=== PATIENT | female | born 2000 | race Caucasian/White ===

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

== ENCOUNTER 2024-07-25 11:18 | Emergency (ER) | payer BC, OTHER ==
[2024-07-25 11:28] VITALS: RESP 18; TEMP 98.1
[2024-07-25] MEDS: FLUORESCEIN STRIPS 1 MG STRIP LEFT EYE ONE (11:37)
[2024-07-25] MEDS: PROPARACAINE 0.5% OPHTH DROPS 15 ML BTL LEFT EYE STA (11:37)
--- NOTE | 2024-07-25 11:46 | ED ---
Eye Problem HPI - General Chief complaint: Eye Problems Stated complaint: L Eye Issues Time Seen by Provider: 07/25/24 11:29 Source: patient, RN notes reviewed Mode of arrival: ambulatory Limitations: no limitations - History of Present Illness Initial comments: This is a 24-year-old female presenting for left eye injury occurring at 1015 today. Patient states she was attempting to raise her hand when the laminated card she was wearing around her neck flew into her left eye, causing immediate pain (6/10) with associated blurred vision that is ongoing. Patient denies headache, discharge, visual field deficit. MD chief complaint: eye pain, eye injury, vision change Onset/Timin -: hour(s) Onset Description: sudden Location: left eye Place: work If Injury: direct trauma Eye Symptoms: pain, decreased vision, blurry vision Severity scale (1-10): 6 Consistency: constant Associated Symptoms: none Treatments Prior to Arrival: none - Related Data Previous Rx's Medication Instructions Recorded Acetaminophen [Tylenol] 500 mg PO Q4-6H PRN #24 tab 06/06/21 Doxycycline [Vibramycin] 100 mg PO BID 1 Days #20 each 06/06/21 Ibuprofen [Motrin] 600 mg PO Q8HR PRN #30 tab 06/06/21 Erythromycin Ophth Oint [Romycin 1 applic LEFT EYE QID #15 gm 07/25/24 Ophth Oint] Ibuprofen [Motrin] 800 mg PO Q8H PRN #20 tab 07/25/24 Allergies Allergy/AdvReac Type Severity Reaction Status Date / Time cephalexin [From Keflex] Allergy Anaphylaxis Verified 07/25/24 11:28 Sulfa (Sulfonamide Allergy Anaphylaxis Verified 07/25/24 11:28 Antibiotics) Review of Systems ROS Statement: Those systems with pertinent positive or pertinent negative responses have been documented in the HPI. ROS Other: All systems not noted in ROS Statement are negative. Past Medical History Past Medical History: No Reported History Additional Past Medical History / Comment(s): miscarriage 8 weeks History of Any Multi-Drug Resistant Organisms: MRSA Date of last positivie culture/infection: 06/06/21 MDRO Source:: BUTTOCK Past Surgical History: Tonsillectomy Additional Past Surgical History / Comment(s): tubes in ears Past Psychological History: No Psychological Hx Reported Smoking Status: Current every day smoker Past Alcohol Use History: None Reported Past Drug Use History: None Reported General Exam Limitations: no limitations General appearance: alert, in no apparent distress Head exam: Present: atraumatic, normocephalic, normal inspection Eye exam: Present: normal appearance, PERRL, EOMI, other (Snellen chart: Left20/50, right20/30. Tonometer: 1920 bilaterally. Preciado lamp reveals small vertical, linear abrasion on cornea over pupil. Negative Rudy sign.). Absent: scleral icterus, conjunctival injection, periorbital swelling Pupils: Present: normal accommodation ENT exam: Present: normal exam, mucous membranes moist Neck exam: Present: normal inspection. Absent: tenderness, meningismus, lymphadenopathy Respiratory exam: Present: normal lung sounds bilaterally. Absent: respiratory distress, wheezes, rales, rhonchi, stridor Cardiovascular Exam: Present: regular rate, normal rhythm, normal heart sounds. Absent: systolic murmur, diastolic murmur, rubs, gallop, clicks GI/Abdominal exam: Present: soft, normal bowel sounds. Absent: distended, tenderness, guarding, rebound, rigid Extremities exam: Present: normal inspection, full ROM, normal capillary refill. Absent: tenderness, pedal edema, joint swelling, calf tenderness Back exam: Present: normal inspection Neurological exam: Present: alert, oriented X3, CN II-XII intact Psychiatric exam: Present: normal affect, normal mood Skin exam: Present: warm, dry, intact, normal color. Absent: rash Course Vital Signs 07/25/24 07/25/24 11:26 13:04 Temperature 98.1 F 98.1 F Pulse Rate 101 H 96 Respiratory 18 18 Rate Blood Pressure 136/85 132/76 O2 Sat by Pulse 96 99 Oximetry Medical Decision Making - Medical Decision Making Was pt. sent in by a medical professional or institution (, PA, MANAGER [employer], urgent care, hospital, or alf...) When possible be specific @ -No Did you speak to anyone other than the patient for history (EMS, parent, family, police, friend...)? What history was obtained from this source @ -No Did you review nursing and triage notes (agree or disagree)? Why? @ -I reviewed and agree with nursing and triage notes Were old charts reviewed (outside hosp., previous admission, EMS record, old EKG, old radiological studies, urgent care reports/EKG's, alf records)? Report findings @ -No old charts were reviewed Differential Diagnosis (chest pain, altered mental status, abdominal pain women, abdominal pain men, vaginal bleeding, weakness, fever, dyspnea, syncope, headache, dizziness, GI bleed, back pain, seizure, CVA, palpatations, mental health, musculoskeletal)? @ -Conjunctivitis, corneal abrasion, glaucoma, cataract, iritis, episcleritis, retinal detachment, this is not an exhaustive list EKG interpreted by me (3pts min.). @ -Not done X-rays interpreted by me (1pt min.). @ -None done CT interpreted by me (1pt min.). @ -None done U/S interpreted by me (1pt. min.). @ -None done What testing was considered but not performed or refused? (CT, X-rays, U/S, labs)? Why? @ -None What meds were considered but not given or refused? Why? @ -None Did you discuss the management of the patient with other professionals (professionals i.e. , PA, MANAGER [employer], lab, RT, psych nurse, social human services assistants, oil filters inspector, teacher, parachute officer, case monitor)? Give summary @ -No Was smoking cessation discussed for >3mins.? @ -No Was critical care preformed (if so, how long)? @ -No Were there social determinants of health that impacted care today? How? (Homelessness, low income, unemployed, alcoholism, drug addiction, transportation, low edu. Level, literacy, decrease access to med. care, care home, rehab)? @ -No Was there de-escalation of care discussed even if they declined (Discuss DNR or withdrawal of care, Hospice)? DNR status @ -No What co-morbidities impacted this encounter? (DM, HTN, Smoking, COPD, CAD, Cancer, CVA, ARF, Chemo, Hep., AIDS, mental health diagnosis, sleep apnea, morbid obesity)? @ -None Was patient admitted / discharged? Hospital course, mention meds given and route, prescriptions, significant lab abnormalities, going to OR and other pertinent info. @ -Preciado lamp examination reveals corneal abrasion over pupil with no other concerning physical exam findings. Erythromycin ointment and Motrin 800 sent to patient's pharmacy. Advised cold compress to affected eye for 10 minutes up to 4 times daily. May alternate Tylenol/Motrin every 4 hours for pain. Follow-up with PCP/ophthalmology for any ongoing or worsening symptoms. Discussed patient with Dr. Coppola. Undiagnosed new problem with uncertain prognosis? @ -No Drug Therapy requiring intensive monitoring for toxicity (Heparin, Nitro, Insulin, Cardizem)? @ -No Were any procedures done? @ -No Diagnosis/symptom? @ -Corneal abrasion Acute, or Chronic, or Acute on Chronic? @ -Acute Uncomplicated (without systemic symptoms) or Complicated (systemic symptoms)? @ -Uncomplicated Side effects of treatment? @ -No Exacerbation, Progression, or Severe Exacerbation? @ -No Poses a threat to life or bodily function? How? (Chest pain, [place], [place], pneumonia, PE, COPD, DKA, ARF, appy, cholecystitis, CVA, Diverticulitis, Homicidal, Suicidal, threat to staff... and all critical care pts) @ -No Disposition Clinical Impression: Corneal abrasion Disposition: HOME SELF-CARE Condition: Good Instructions (If sedation given, give patient instructions): Abrasion (ED) Additional Instructions: Alternate Tylenol/Motrin every 4 hours for pain. Cool compress to affected eye for 10 minutes up to 4 times daily. Follow-up with PCP/machine cementer and folder if symptoms do not improve or worsen. Prescriptions: Ibuprofen [Motrin] 800 mg PO Q8H PRN #20 tab PRN Reason: Pain Erythromycin Ophth Oint [Romycin Ophth Oint] 1 applic LEFT EYE QID #15 gm Is patient prescribed a controlled substance at d/c from ED?: No Referrals: Deirdre Strong MD [Primary Care Provider] - 1-2 days Tom Amezcua MD [STAFF PHYSICIAN] - 1-2 days Time of Disposition: 12:27
[2024-07-25 13:05] VITALS: BP 132/76; PULSE 96
== END 2024-07-25 13:04 | disposition home or self-care (01) ==
LOC: EC 11:18
DX: S05.00XA Injury of conjunctiva and corneal abrasion without foreign body, unspecified eye, initial encounter (principal); F17.200 Nicotine dependence, unspecified, uncomplicated; Z88.1 Allergy status to other antibiotic agents; Z88.2 Allergy status to sulfonamides; W22.8XXA Striking against or struck by other objects, initial encounter
CPT/HCPCS: 99283

== ENCOUNTER 2024-09-07 12:13 | Emergency (ER) | payer BC, OTHER ==
[2024-09-07 12:27] VITALS: RESP 20
--- NOTE | 2024-09-07 13:03 | ED ---
General Adult HPI - General Chief complaint: Abdominal Pain Stated complaint: Abd Pain Time Seen by Provider: 09/07/24 12:30 Source: patient, RN notes reviewed Mode of arrival: ambulatory Limitations: no limitations - History of Present Illness Initial comments: This is a 24-year-old female with no reported medical conditions presenting to emergency room with complaints of lower pelvic pain with some over the left lower pelvic that started this morning. Patient states that she has not had a menstrual cycle in 4 months and recently had outpatient ultrasound testing which revealed that she had a blockage of her left fallopian tube. Patient denies v aginal discharge, abnormal vaginal bleeding, dysuria, creased urinary frequency or urgency, flank pain, fevers, chills, nausea, vomiting. She denies history of STI or STD or denies chance of STIs or STDs. Denies chance of . Denies previous medical abdominal history. - Related Data Previous Rx's Medication Instructions Recorded Acetaminophen [Tylenol] 500 mg PO Q4-6H PRN #24 tab 06/06/21 Doxycycline [Vibramycin] 100 mg PO BID 1 Days #20 each 06/06/21 Ibuprofen [Motrin] 600 mg PO Q8HR PRN #30 tab 06/06/21 Erythromycin Ophth Oint [Romycin 1 applic LEFT EYE QID #15 gm 07/25/24 Ophth Oint] Ibuprofen [Motrin] 800 mg PO Q8H PRN #20 tab 07/25/24 Ibuprofen [Motrin] 800 mg PO Q6HR #30 tab 09/07/24 clindamycin HCL 300 mg PO QID #40 cap 09/07/24 Allergies Allergy/AdvReac Type Severity Reaction Status Date / Time cephalexin [From Keflex] Allergy Anaphylaxis Verified 09/07/24 12:27 Sulfa (Sulfonamide Allergy Anaphylaxis Verified 09/07/24 12:27 Antibiotics) Review of Systems ROS Statement: Those systems with pertinent positive or pertinent negative responses have been documented in the HPI. ROS Other: All systems not noted in ROS Statement are negative. Past Medical History Past Medical History: No Reported History Additional Past Medical History / Comment(s): miscarriage 8 weeks History of Any Multi-Drug Resistant Organisms: MRSA Date of last positivie culture/infection: 06/06/21 MDRO Source:: BUTTOCK Past Surgical History: Tonsillectomy Additional Past Surgical History / Comment(s): tubes in ears Past Psychological History: No Psychological Hx Reported Smoking Status: Current every day smoker Past Alcohol Use History: None Reported Past Drug Use History: None Reported General Exam - General Exam Comments Initial Comments: Visual Physical Exam Vital signs reviewed General: Well-appearing, nontoxic, no acute distress. Head: Normocephalic, atraumatic Eyes: PERRLA, EOMI ENT: Airway patent Chest: Nonlabored breathing Skin: No visual rash, normal skin tone Neuro: Alert and oriented 3 Musculoskeletal: No gross abnormalities Limitations: no limitations General appearance: alert, in no apparent distress ENT exam: Present: normal exam, mucous membranes moist Neck exam: Present: normal inspection. Absent: tenderness, meningismus, l ymphadenopathy Respiratory exam: Present: normal lung sounds bilaterally. Absent: respiratory distress, wheezes, rales, rhonchi, stridor Cardiovascular Exam: Present: regular rate, normal rhythm, normal heart sounds. Absent: systolic murmur, diastolic murmur, rubs, gallop, clicks GI/Abdominal exam: Present: soft, tenderness (left pelvic), normal bowel sounds. Absent: distended, guarding, rebound, rigid Extremities exam: Present: normal inspection, full ROM, normal capillary refill. Absent: tenderness, pedal edema, joint swelling, calf tenderness Back exam: Present: normal inspection. Absent: CVA tenderness (R), CVA tenderness (L) Course Vital Signs 09/07/24 09/07/24 12:23 15:47 Temperature 97.8 F 98.4 F Pulse Rate 88 92 Respiratory 20 20 Rate Blood Pressure 142/93 129/80 O2 Sat by Pulse 96 95 Oximetry Medical Decision Making - Medical Decision Making Was pt. sent in by a medical professional or institution (, PA, MANAGER LEAN, urgent care, hospital, or long-term...) When possible be specific @ -No Did you speak to anyone other than the patient for history (EMS, parent, family, police, friend...)? What history was obtained from this source @ -No Did you review nursing and triage notes (agree or disagree)? Why? @ -I reviewed and agree with nursing and triage notes Were old charts reviewed (outside hosp., previous admission, EMS record, old EKG, old radiological studies, urgent care reports/EKG's, long-term records)? Report findings @ -Reviewed ultrasound imaging completed on 09/03/2024 which revealed left-sided hydrosalpinx. Differential Diagnosis (chest pain, altered mental status, abdominal pain women, abdominal pain men, vaginal bleeding, weakness, fever, dyspnea, syncope, headache, dizziness, GI bleed, back pain, seizure, CVA, palpatations, mental health, musculoskeletal)? @ -Differential Abdominal Pain Women: Appendicitis, Cholecystitis, diverticulosis, ischemic bowel, pancreatitis, hepatitis, UTI, gastroenteritis, AAA, incarcerated hernia, bowel obstruction, constipation, inflammatory bowel, hepatitis, peptic ulcer disease, splenic infarction, perforated viscus, vulvitis, ovarian torsion, PID, kidney stone, placenta abruption, this is not meant to be an all-inclusive list EKG interpreted by me (3pts min.). @ -None X-rays interpreted by me (1pt min.). @ -None done CT interpreted by me (1pt min.). @ -CT imaging of the abdomen pelvis with IV contrast reveals hydrosalpinx on the left with moderate liver steatosis U/S interpreted by me (1pt. min.). @ -None done What testing was considered but not performed or refused? (CT, X-rays, U/S, labs)? Why? @ -None What meds were considered but not given or refused? Why? @ -None Did you discuss the management of the patient with other professionals (professionals i.e. , PA, MANAGER LEAN, lab, RT, psych nurse, social media analyst, cdl b driver, teacher, border patrol officer, case therapist)? Give summary @ -Spoke with on-call OB physician, Dr. Hancock, in regard to the ultrasound and CT findings who recommended patient trial a 10-day course of doxycycline follow- up with primary care provider in 7 to 14 days. Additionally, recommend ibuprofen for pain control. Was smoking cessation discussed for >3mins.? @ -No Was critical care preformed (if so, how long)? @ -No Were there social determinants of health that impacted care today? How? (Homelessness, low income, unemployed, alcoholism, drug addiction, transportation, low edu. Level, literacy, decrease access to med. care, prison, rehab)? @ -No Was there de-escalation of care discussed even if they declined (Discuss DNR or withdrawal of care, Hospice)? DNR status @ -No What co-morbidities impacted this encounter? (DM, HTN, Smoking, COPD, CAD, Cancer, CVA, ARF, Chemo, Hep., AIDS, mental health diagnosis, sleep apnea, morbid obesity)? @ -None Was patient admitted / discharged? Hospital course, mention meds given and route, prescriptions, significant lab abnormalities, going to OR and other pertinent info. @ -Discharge. 24-year-old female presenting with pelvic pain. Pain is reproducible on examination. She provided Toradol for pain relief. Laboratory testing is unremarkable including CBC and CMP. Urinalysis reveals no signs of infection, hCG is negative. CT of the abdomen pelvis reveals left hydrosalpinx. I spoke with OB, Dr. Hancock, who recommends treating the patient with oral doxycycline for 7 to 10-day course and to take Motrin as needed for pain and to follow-up with primary care provider in 7 to 14 days for further evaluation. Patient stable for discharge with course of antibiotics into the pharmacy. Return parameters discussed. Case discussed with Dr. Grewal Undiagnosed new problem with uncertain prognosis? @ -No Drug Therapy requiring intensive monitoring for toxicity (Heparin, Nitro, Insulin, Cardizem)? @ -No Were any procedures done? @ -No Diagnosis/symptom? @ -Pelvic pain, hydrosalpinx Acute, or Chronic, or Acute on Chronic? @ -Acute Uncomplicated (without systemic symptoms) or Complicated (systemic symptoms)? @ -Uncomplicated Side effects of treatment? @ -No Exacerbation, Progression, or Severe Exacerbation? @ -No Poses a threat to life or bodily function? How? (Chest pain, [place], [place], pneumonia, PE, COPD, DKA, ARF, appy, cholecystitis, CVA, Diverticulitis, Homicidal, Suicidal, threat to staff... and all critical care pts) @ -No - Lab Data Result diagrams: 09/07/24 13:30 09/07/24 13:30 Lab Results 09/07/24 09/07/24 09/07/24 Range/Units 13:30 13:30 13:30 WBC 9.21 (4.50-10.00) 10*3/uL RBC 5.16 (4.10-5.20) 10*6/uL Hgb 13.8 (12.0-15.0) g/dL Hct 41.8 (37.2-46.3) % MCV 81.0 (80.0-97.0) fL MCH 26.7 L (27.0-32.0) pg MCHC 33.0 (32.0-37.0) g/dL Plt Count 292 (140-440) 10*3/uL MPV 10.4 (9.5-12.2) fL Immature Gran % (Auto) 0.2 % Neutrophils % 56.0 % Lymphocytes % 30.9 % Monocytes % 7.6 % Eosinophils % 4.5 % Basophils % 0.8 % Immature Gran # 0.02 (0.00-0.04) 10*3/uL Neutrophils # 5.16 (1.80-7.70) 10*3/uL Lymphocytes # 2.85 (0.90-5.00) 10*3/uL Monocytes # 0.70 (0.20-1.00) 10*3/uL Eosinophils # 0.41 H (0.04-0.35) 10*3/uL Basophils # 0.07 (0.00-0.10) 10*3/uL Sodium (137-145) mmol/L Potassium (3.5-5.1) mmol/L Chloride (98-107) mmol/L Carbon Dioxide (22-30) mmol/L Anion Gap mmol/L BUN (7-17) mg/dL Creatinine (0.52-1.04) mg/dL Est GFR (CKD-EPI)AfAm (>60 ml/min/1.73 sqM) Est GFR (CKD-EPI)NonAf (>60 ml/min/1.73 sqM) Glucose (74-99) mg/dL Calcium (8.4-10.2) mg/dL Total Bilirubin (0.2-1.3) mg/dL AST (14-36) U/L ALT (4-34) U/L Alkaline Phosphatase (38-126) U/L Total Protein (6.3-8.2) g/dL Albumin (3.5-5.0) g/dL Lipase (23-300) U/L Urine Color Light Yellow Urine Appearance Cloudy H (Clear) Urine pH 5.5 (5.0-8.0) Ur Specific [place] 1.017 (1.001-1.035) Urine Protein Negative (Negative) Urine Glucose (UA) Negative (Negative) Urine Ketones Negative (Negative) Urine Blood Negative (Negative) Urine Nitrite Negative (Negative) Urine Bilirubin Negative (Negative) Urine Urobilinogen <2.0 (<2.0) mg/dL Ur Leukocyte Esterase Small H (Negative) Urine RBC 2 (0-5) /hpf Urine WBC 2 (0-5) /hpf Ur Squamous Epith Cells 10 H (0-4) /hpf Urine Bacteria Rare H (None) /hpf Urine Mucus Rare H (None) /hpf Urine HCG, Qual Not Detected (Not Detectd) 09/07/24 Range/Units 13:30 WBC (4.50-10.00) 10*3/uL RBC (4.10-5.20) 10*6/uL Hgb (12.0-15.0) g/dL Hct (37.2-46.3) % MCV (80.0-97.0) fL MCH (27.0-32.0) pg MCHC (32.0-37.0) g/dL Plt Count (140-440) 10*3/uL MPV (9.5-12.2) fL Immature Gran % (Auto) % Neutrophils % % Lymphocytes % % Monocytes % % Eosinophils % % Basophils % % Immature Gran # (0.00-0.04) 10*3/uL Neutrophils # (1.80-7.70) 10*3/uL Lymphocytes # (0.90-5.00) 10*3/uL Monocytes # (0.20-1.00) 10*3/uL Eosinophils # (0.04-0.35) 10*3/uL Basophils # (0.00-0.10) 10*3/uL Sodium 137 (137-145) mmol/L Potassium 5.0 (3.5-5.1) mmol/L Chloride 107 (98-107) mmol/L Carbon Dioxide 21 L (22-30) mmol/L Anion Gap 9 mmol/L BUN 10 (7-17) mg/dL Creatinine 0.55 (0.52-1.04) mg/dL Est GFR (CKD-EPI)AfAm >90 (>60 ml/min/1.73 sqM) Est GFR (CKD-EPI)NonAf >90 (>60 ml/min/1.73 sqM) Glucose 90 (74-99) mg/dL Calcium 9.5 (8.4-10.2) mg/dL Total Bilirubin 0.9 (0.2-1.3) mg/dL AST 66 H (14-36) U/L ALT 90 H (4-34) U/L Alkaline Phosphatase 83 (38-126) U/L Total Protein 7.6 (6.3-8.2) g/dL Albumin 4.6 (3.5-5.0) g/dL Lipase 71 (23-300) U/L Urine Color Urine Appearance (Clear) Urine pH (5.0-8.0) Ur Specific [place] (1.001-1.035) Urine Protein (Negative) Urine Glucose (UA) (Negative) Urine Ketones (Negative) Urine Blood (Negative) Urine Nitrite (Negative) Urine Bilirubin (Negative) Urine Urobilinogen (<2.0) mg/dL Ur Leukocyte Esterase (Negative) Urine RBC (0-5) /hpf Urine WBC (0-5) /hpf Ur Squamous Epith Cells (0-4) /hpf Urine Bacteria (None) /hpf Urine Mucus (None) /hpf Urine HCG, Qual (Not Detectd) Disposition Clinical Impression: Hydrosalpinx, Pelvic pain Disposition: HOME SELF-CARE Condition: Stable Instructions (If sedation given, give patient instructions): Pelvic Pain in Women (ED) Additional Instructions: Please return to the Emergency Department if symptoms worsen or any other concerns. Complete full course of antibiotics as prescribed. Continue to take Tylenol and/or Motrin as prescribed as needed for pain relief. Follow-up with your primary care provider in 7 to 14 days for reevaluation. Prescriptions: clindamycin HCL 300 mg PO QID #40 cap Ibuprofen [Motrin] 800 mg PO Q6HR #30 tab Is patient prescribed a controlled substance at d/c from ED?: No Referrals: Deirdre Strong MD [Primary Care Provider] - 1-2 days Time of Disposition: 15:34
[2024-09-07 13:40] LABS: Basophils # (A) 0.07 10*3/uL (0.00-0.10); Basophils % (A) 0.8 %; Eosinophils # (A) 0.41 10*3/uL (0.04-0.35); Eosinophils % (A) 4.5 %; HCT 41.8 % (37.2-46.3); HGB 13.8 g/dL (12.0-15.0); Lymphocytes # (A) 2.85 10*3/uL (0.90-5.00); Lymphocytes % (A) 30.9 %; MCH 26.7 pg (27.0-32.0); Mean Platelet Volume 10.4 fL (9.5-12.2); Monocytes % (A) 7.6 %; Neutrophils # (A) 5.16 10*3/uL (1.80-7.70); Platelet Count 292 10*3/uL (140-440); RBC 5.16 10*6/uL (4.10-5.20); RDW 12.9 % (11.5-14.5); WBC 9.21 10*3/uL (4.50-10.00)
[2024-09-07 13:46] LABS: Appearance,Urine Cloudy (Clear); Bacteria,Urine Rare /hpf; Bilirubin,Urine Negative (Negative); Blood,Urine Negative (Negative); Color,Urine Light Yellow; Glucose,Urine (UA) Negative (Negative); Ketones,Urine Negative (Negative); Leukocyte Esterase,Urine Small (Negative); Mucus,Urine Rare /hpf; Nitrite,Urine Negative (Negative); PH, Urine 5.5 (5.0-8.0); Protein,Urine Negative (Negative); RBC,Urine 2 /hpf (0-5); Specific Gravity,Urine 1.017 (1.001-1.035); Squamous Epithelial Cell,Urine 10 /hpf (0-4); Urobilinogen,Urine <2.0 mg/dL (<2.0); WBC,Urine 2 /hpf (0-5)
[2024-09-07 13:54] LABS: ALT 90 U/L (4-34); African American GFR (CKD) >90 (>60 ml/min/1.73 sqM); Anion Gap 9 mmol/L; Blood Urea Nitrogen 10 mg/dL (7-17); Calcium 9.5 mg/dL (8.4-10.2); Carbon Dioxide 21 mmol/L (22-30); Chloride 107 mmol/L (98-107); Glucose 90 mg/dL (74-99); Non-African American GFR(CKD) >90 (>60 ml/min/1.73 sqM); Sodium 137 mmol/L (137-145)
[2024-09-07 14:07] LABS: Total Protein 7.6 g/dL (6.3-8.2)
[2024-09-07 14:08] LABS: Albumin 4.6 g/dL (3.5-5.0)
[2024-09-07 14:09] LABS: AST 66 U/L (14-36); Alkaline Phosphatase 83 U/L (38-126); Total Bilirubin 0.9 mg/dL (0.2-1.3)
--- NOTE | 2024-09-07 14:32 | CT ---
EXAMINATION TYPE: CT abdomen pelvis w con DATE OF EXAM: 09/07/2024 COMPARISON: None CLINICAL INDICATION: Female, 24 years old with history of pelvic pain, recent US concern for hydrosal pinx; PHH, Pelvic pain, recent US concern for hydrosalpinx. TECHNIQUE: Performed without Oral Contrast and with IV Contrast, patient injected with 100 ml mL of Isovue 300. CT DLP: 3033.[address] CTDI: mGy Automated exposure control for dose reduction was used. Findings: The lung bases are clear. The gallbladder is normal without distention, wall thickening, pericholecystic fluid or gallstones. T here is no biliary ductal dilatation. There is no focal mass or organomegaly involving the liver, pancreas, spleen or adrenal glands. There is moderate liver steatosis There is no solid renal mass or hydronephrosis and there is homogeneous contrast enhancement of the r enal parenchyma. The caliber the abdominal aorta is normal is no retroperitoneal adenopathy or hemorr esthela. The bowel loops are normal in caliber and there is no evidence of dilatation or obstruction. No infla mmatory changes are identified in the bowel wall or mesentery. There is no free intraperitoneal air or fluid. There is a fluid filled tubular structure in the left adnexa consistent with hydrosalpinx. There is n o free fluid in the cul-de-sac. There are no inflammatory changes in the pelvis and there is no pelvi c abscess. The osseous structures are intact. IMPRESSION: 1. Findings consistent with hydrosalpinx on the left. 2. Moderate liver steatosis [facility], , 09/07/2024 2:30 PM
[2024-09-07 15:26] LABS: Lipase 71 U/L (23-300)
[2024-09-07 15:50] VITALS: BP 129/80; PULSE 92; TEMP 98.4
[2024-09-07] MEDS: KETOROLAC 15 MG/ML 1 ML VIAL IVP STA (15:50)
== END 2024-09-07 16:01 | disposition home or self-care (01) ==
LOC: EC 12:13
DX: R10.2 Pelvic and perineal pain (principal); N70.11 Chronic salpingitis; F17.200 Nicotine dependence, unspecified, uncomplicated; Z88.1 Allergy status to other antibiotic agents; Z88.2 Allergy status to sulfonamides
CPT/HCPCS: 36415; 80053; 83690; 85025; 81001; 81025; 74177; 99285; 96374; J1885; Q9967

== ENCOUNTER 2024-10-01 08:35 | Emergency (ER) | payer BC, OTHER ==
[2024-10-01 08:43] VITALS: TEMP 97.9
--- NOTE | 2024-10-01 09:47 | ED ---
General Adult HPI - General Chief complaint: Urogenital Stated complaint: Pelvic Pain Time Seen by Provider: 10/01/24 09:10 Source: patient, RN notes reviewed Mode of arrival: ambulatory Limitations: no limitations - History of Present Illness Initial comments: 24-year-old female presenting to the emergency department for complaints of left lower pelvic pain that is severe this morning. She states that over the weekend she had dull pain of the left-hand side however this morning it intensified. She states that the pain is nonradiating. She is also been experiencing dysuria over the past few days. She denies hematuria, increased urinary frequency or urgency, malodorous urine, vaginal discharge or odor. She denies chance of or STI/STDs. She states that she is following up with OB on this upcoming Tuesday for further evaluation of intermittent pelvic pain she has been experiencing over the past few months. States that she does have a history of a "swollen" left fallopian tube. - Related Data Previous Rx's Medication Instructions Recorded Acetaminophen [Tylenol] 500 mg PO Q4-6H PRN #24 tab 06/06/21 Doxycycline [Vibramycin] 100 mg PO BID 1 Days #20 each 06/06/21 Ibuprofen [Motrin] 600 mg PO Q8HR PRN #30 tab 06/06/21 Erythromycin Ophth Oint [Romycin 1 applic LEFT EYE QID #15 gm 07/25/24 Ophth Oint] Ibuprofen [Motrin] 800 mg PO Q8H PRN #20 tab 07/25/24 Ibuprofen [Motrin] 800 mg PO Q6HR #30 tab 09/07/24 clindamycin HCL 300 mg PO QID #40 cap 09/07/24 Ketorolac [Toradol] 10 mg PO Q8HR #15 tab 10/01/24 Allergies Allergy/AdvReac Type Severity Reaction Status Date / Time cephalexin [From Keflex] Allergy Anaphylaxis Verified 10/01/24 08:42 Sulfa (Sulfonamide Allergy Anaphylaxis Verified 10/01/24 08:42 Antibiotics) Review of Systems ROS Statement: Those systems with pertinent positive or pertinent negative responses have been documented in the HPI. ROS Other: All systems not noted in ROS Statement are negative. Past Medical History Past Medical History: No Reported History, Chest Pain / Angina, Diabetes Mellitus Additional Past Medical History / Comment(s): miscarriage 8 weeks, Fatty liver History of Any Multi-Drug Resistant Organisms: MRSA Date of last positivie culture/infection: 06/06/21 MDRO Source:: BUTTOCK Past Surgical History: Tonsillectomy Additional Past Surgical History / Comment(s): tubes in ears Past Psychological History: No Psychological Hx Reported Smoking Status: Current every day smoker Past Alcohol Use History: None Reported Past Drug Use History: None Reported General Exam Limitations: no limitations Neck exam: Present: normal inspection. Absent: tenderness, meningismus, lymphadenopathy Respiratory exam: Present: normal lung sounds bilaterally. Absent: respiratory distress, wheezes, rales, rhonchi, stridor Cardiovascular Exam: Present: regular rate, normal rhythm, normal heart sounds. Absent: systolic murmur, diastolic murmur, rubs, gallop, clicks GI/Abdominal exam: Present: soft, tenderness (left pelvic), normal bowel sounds. Absent: distended, guarding, rebound, rigid Extremities exam: Present: normal inspection, full ROM, normal capillary refill. Absent: tenderness, pedal edema, joint swelling, calf tenderness Back exam: Present: normal inspection. Absent: CVA tenderness (R), CVA tenderness (L) Course Vital Signs 10/01/24 10/01/24 08:40 11:42 Temperature 97.9 F Pulse Rate 96 95 Respiratory 20 18 Rate Blood Pressure 143/89 107/78 O2 Sat by Pulse 99 97 Oximetry Medical Decision Making - Medical Decision Making Was pt. sent in by a medical professional or institution (NAOMIE Bojorquez, YARD COORDINATOR, urgent care, hospital, or retirement...) When possible be specific @ -No Did you speak to anyone other than the patient for history (EMS, parent, family, police, friend...)? What history was obtained from this source @ -No Did you review nursing and triage notes (agree or disagree)? Why? @ -I reviewed and agree with nursing and triage notes Were old charts reviewed (outside hosp., previous admission, EMS record, old EKG, old radiological studies, urgent care reports/EKG's, retirement records)? Report findings @ -No old charts were reviewed Differential Diagnosis (chest pain, altered mental status, abdominal pain women, abdominal pain men, vaginal bleeding, weakness, fever, dyspnea, syncope, headache, dizziness, GI bleed, back pain, seizure, CVA, palpatations, mental health, musculoskeletal)? @ -Differential Abdominal Pain Women: Appendicitis, Cholecystitis, diverticulosis, ischemic bowel, pancreatitis, hepatitis, UTI, gastroenteritis, AAA, incarcerated hernia, bowel obstruction, constipation, inflammatory bowel, hepatitis, peptic ulcer disease, splenic infarction, perforated viscus, vulvitis, ovarian torsion, PID, kidney stone, placenta abruption, this is not meant to be an all-inclusive list EKG interpreted by me (3pts min.). @ -None X-rays interpreted by me (1pt min.). @ -None done CT interpreted by me (1pt min.). @ -None done U/S interpreted by me (1pt. min.). @ -Transvaginal ultrasound reveals dilated tubular structure left adnexa possibly hydrosalpinx, endometrium within normal limits with bilateral venous and arterial flow to both ovaries, multiple peripheral follicles in the ovaries compatible with polycystic ovarian morphology What testing was considered but not performed or refused? (CT, X-rays, U/S, labs)? Why? @ -None What meds were considered but not given or refused? Why? @ -None Did you discuss the management of the patient with other professionals (professionals i.e. , PA, YARD COORDINATOR, lab, RT, psych nurse, social scientist, corporate accounting manager, teacher, supply officer, case worker)? Give summary @ -No Was smoking cessation discussed for >3mins.? @ -No Was critical care preformed (if so, how long)? @ -No Were there social determinants of health that impacted care today? How? (Homelessness, low income, unemployed, alcoholism, drug addiction, transportation, low edu. Level, literacy, decrease access to med. care, prison, rehab)? @ -No Was there de-escalation of care discussed even if they declined (Discuss DNR or withdrawal of care, Hospice)? DNR status @ -No What co-morbidities impacted this encounter? (DM, HTN, Smoking, COPD, CAD, Cancer, CVA, ARF, Chemo, Hep., AIDS, mental health diagnosis, sleep apnea, morbid obesity)? @ -None Was patient admitted / discharged? Hospital course, mention meds given and route, prescriptions, significant lab abnormalities, going to OR and other pertinent info. @ Discharge. 24-year-old female presenting to the emergency department for complaints of left lower pelvic pain. Patient's pain is mildly reproducible on examination. She is provided with Toradol for pain relief. Urinalysis reveals blood and hCG is not detected. Transvaginal ultrasound reveals a dilated tubular structure of the left adnexa with multiple peripheral follicles in the ovaries with no evidence of ovarian torsion bilaterally. Patient is provided with outpatient prescription for Toradol to take as needed for pain instructed to follow-up with OB as scheduled on Tuesday for further evaluation. Case discussed with my attending Dr. Grewal. Additionally, urine sent for testing for chlamydia, gonorrhea, trichomonas. Patient was offered prophylactic treatment for STIs however she is declined. Undiagnosed new problem with uncertain prognosis? @ -No Drug Therapy requiring intensive monitoring for toxicity (Heparin, Nitro, Insulin, Cardizem)? @ -No Were any procedures done? @ -No Diagnosis/symptom? @ -Pelvic pain Acute, or Chronic, or Acute on Chronic? @ -Acute Uncomplicated (without systemic symptoms) or Complicated (systemic symptoms)? @ -Uncomplicated Side effects of treatment? @ -No Exacerbation, Progression, or Severe Exacerbation? @ -No Poses a threat to life or bodily function? How? (Chest pain, [place], [place], pneumonia, PE, COPD, DKA, ARF, appy, cholecystitis, CVA, Diverticulitis, Homicidal, Suicidal, threat to staff... and all critical care pts) @ -No - Lab Data Lab Results 10/01/24 10/01/24 Range/Units 09:48 09:48 Urine Color Colorless Urine Appearance Clear (Clear) Urine pH 6.5 (5.0-8.0) Ur Specific [place] 1.018 (1.001-1.035) Urine Protein Negative (Negative) Urine Glucose (UA) Negative (Negative) Urine Ketones Negative (Negative) Urine Blood Moderate H (Negative) Urine Nitrite Negative (Negative) Urine Bilirubin Negative (Negative) Urine Urobilinogen <2.0 (<2.0) mg/dL Ur Leukocyte Esterase Small H (Negative) Urine RBC 63 H (0-5) /hpf Urine WBC 5 (0-5) /hpf Ur Squamous Epith Cells 6 H (0-4) /hpf Urine Mucus Rare H (None) /hpf Urine HCG, Qual Not Detected (Not Detectd) Disposition Clinical Impression: Pelvic pain Disposition: HOME SELF-CARE Condition: Good Instructions (If sedation given, give patient instructions): Pelvic Pain in Women (ED) Additional Instructions: Please return to the Emergency Department if symptoms worsen or any other conc erns. Please follow-up as scheduled on Tuesday with your senior ui ux designer for further evaluation. Only take Toradol as needed for pain relief and do not take this medication along with ibuprofen/Motrin/Advil. You may take Toradol with Tylenol. Prescriptions: Ketorolac [Toradol] 10 mg PO Q8HR #15 tab Is patient prescribed a controlled substance at d/c from ED?: No Referrals: Deirdre Strong MD [Primary Care Provider] - 1-2 days Time of Disposition: 11:02
[2024-10-01] MEDS: KETOROLAC 15 MG/ML 1 ML VIAL IM STA (09:52)
[2024-10-01 10:04] LABS: Bilirubin,Urine Negative (Negative); Blood,Urine Moderate (Negative); Color,Urine Colorless; Glucose,Urine (UA) Negative (Negative); Ketones,Urine Negative (Negative); Leukocyte Esterase,Urine Small (Negative); Mucus,Urine Rare /hpf; Nitrite,Urine Negative (Negative); PH, Urine 6.5 (5.0-8.0); Protein,Urine Negative (Negative); RBC,Urine 63 /hpf (0-5); Specific Gravity,Urine 1.018 (1.001-1.035); Squamous Epithelial Cell,Urine 6 /hpf (0-4); Urobilinogen,Urine <2.0 mg/dL (<2.0); WBC,Urine 5 /hpf (0-5)
--- NOTE | 2024-10-01 10:46 | US ---
EXAMINATION TYPE: US transvaginal DATE OF EXAM: 10/01/2024 COMPARISON: CT 09/07/24, US 08/30/24 CLINICAL INDICATION: Female, 24 years old with history of L pelvic pain; LT pelvic pain and pressure, Hx Hydrosalpinx. Per pt. Trichomoniasis diagnosis and antibiotics course 3 months ago that did not s em to work TECHNIQUE: Transvaginal (TV). Transvaginal sonographic images were medically necessary to better assess the following anatomy: Ovar ies Doppler imaging: Color Doppler Images were obtained. Spectral doppler images were obtained. FINDINGS: Date of LMP: 05/24/24 EXAM MEASUREMENTS: Uterus: 6.3x2.9x3.9 cm Endometrial Stripe: 0.8 cm Right Ovary: 3.6x2.5x2.4 cm Left Ovary: 3.5x2.7x1.8 cm 1. Uterus: Retroverted anteflexed 2. Endometrium: wnl 3. Right Ovary: wnl 4. Left Ovary: wnl Spectral, color and waveform doppler imaging shows good arterial and venous flow within the ovaries ; there is no evidence for ovarian torsion. 5. Bilateral Adnexa: Cogwheel sign compatible with previously visualized hydrosalpinx. Dilation of t he left fallopian tube appears markedly worse from prior 6. Posterior cul-de-sac: wnl IMPRESSION: 1. Dilated tubular structure in left adnexa possibly hydrosalpinx. Consider further evaluation with MR for further evaluation. Possibly sequela of pelvic inflammatory disease. 2. Endometrium within normal limits for thickness. 3. Multiple peripheral follicles in the ovaries compatible with polycystic ovarian morphology [facility], , 10/01/2024 10:43 AM
[2024-10-01 11:42] VITALS: BP 107/78; PULSE 95; RESP 18
[2024-10-02 13:24] LABS: C. trachomatis,PCR Negative (Negative)
[2024-10-02 13:28] LABS: N. gonorrhoeae,PCR Negative (Negative)
== END 2024-10-01 11:42 | disposition home or self-care (01) ==
LOC: EC 08:35
DX: R10.2 Pelvic and perineal pain (principal); F17.200 Nicotine dependence, unspecified, uncomplicated; Z88.2 Allergy status to sulfonamides; Z88.1 Allergy status to other antibiotic agents
CPT/HCPCS: 81001; 81025; 87491; 87591; 93975; 76830; 99284; 96372; J1885